=== PATIENT | female | born 1975 | race Caucasian/White ===

== ENCOUNTER 2024-10-07 06:23 | Day surgery (SDC) | payer OTHER ==
[2024-10-06 11:53] VITALS: BP 124/84
[~2024-10-07] VITALS: Ht 162.6 cm; Wt 77.1 kg
[~2024-10-07 06:23] MED LIST: ALPRAZOLAM XR0.5 MG; GLIPIZIDE XL5 MG; LEVOXYL125 MCG; LOSARTAN-HCTZ1 EACH; METFORMIN HCL1000 M2; ROSUVASTATIN CA20 MG
[2024-10-07] MEDS ORDERED: CHLORHEXIDINE GLUCONATE 120 ML BOTTLE TOP ONE (08:01)
[2024-10-07] MEDS ORDERED: POVIDONE-IODINE 118 ML BOTT TOP ONE ×4 (08:01→11:46)
[2024-10-07] MEDS ORDERED: CLINDAMYCIN PHOSPHATE 150 MG/ML (900mg) ONE (08:07)
[2024-10-07] MEDS ORDERED: GENTAMICIN SULFATE 40 MG/ML VIAL ONE (08:20)
[2024-10-07] MEDS ORDERED: TRANEXAMIC ACID 100MG/1ML (1000MG) AMPUL IV ONE (08:21)
[2024-10-07] MEDS ORDERED: EPINEPHRINE HCL/PF 1 MG/ML AMPUL ONE (08:21)
[2024-10-07] MEDS ORDERED: POVIDONE-IODINE SCRUB 118 ML BOTT TOP ONE (08:22)
[2024-10-07] MEDS ORDERED: CEFAZOLIN SODIUM 1,000 MG VIAL ONE (08:22)
[2024-10-07] MEDS ORDERED: BUPIVACAINE HCL/MPF 0.5% 30ML VIAL ONE (10:54)
== END 2024-10-07 18:20 | disposition home or self-care (01) ==
LOC: CIR.AMB 06:23
PROVIDERS: ATTEND Surgery
DX: C50.411 Malignant neoplasm of upper-outer quadrant of right female breast (principal); C50.412 Malignant neoplasm of upper-outer quadrant of left female breast; Z15.01 Genetic susceptibility to malignant neoplasm of breast; R59.0 Localized enlarged lymph nodes; Z90.13 Acquired absence of bilateral breasts and nipples; N64.81 Ptosis of breast